=== PATIENT | male | born 1945 | race Caucasian/White ===

== ENCOUNTER 2016-11-10 13:08 | Emergency (ER) | payer MEDICARE, OTHER ==
[2016-11-10] MEDS ORDERED: Diphtheria,Pertussis(Acell),Tetanus Vaccine 0.5 ML Syringe IM ONE (13:22)
[2016-11-10] MEDS ORDERED: Lidocaine 2% Jelly 10 ML Urojet MUCMEM ONE (14:31)
[2016-11-10] MEDS ORDERED: HYDROmorphone 1 MG/ML Syringe IVPUSH ONE ×2 (14:36→15:40)
[2016-11-10] MEDS ORDERED: Lidocaine 2% Jelly 5 ML Tube TOP ONE (14:37)
[2016-11-10 15:34] VITALS: BP 118/78
[2016-11-10] MEDS ORDERED: Ondansetron 4 MG/2 ML SDV IVPUSH ONE (15:49)
--- NOTE | 2016-11-10 16:55 | ER ---
Date of Service: 11/10/2016 SUBJECTIVE: Uri presents to the emergency room with a chief complaint of right xwi-sq-cfiziget femur pain. The patient was standing in the bucket of a friend in tank car loader trimming trees when his friend inadvertently tipped the pocket downward. The patient fell approximately 8 feet onto the ground landing on his right leg. The patient also sustained some abrasions to his left forearm and also sustained a superficial laceration to the top of his head. He did not have loss of consciousness and has recollection of the entire event. He denies any chest pain or shortness of breath. He states that his tetanus is not up-to-date and that he does not have a primary care provider or have any preventive medical care. PAST MEDICAL HISTORY: Denies. MEDICATIONS: None. ALLERGIES: NKDA. REVIEW OF SYSTEMS: General: Denies any fever, chills, or recent illness. HEENT: Please see history of present illness. Denies any mid face trauma. Spine: No midline C-spine, thoracic, or lumbar discomfort. Neck: Denies any anterior neck trauma. Chest: Denies any chest trauma. Abdomen: Denies any abdominal pain. Pelvis: Denies any pelvic pain. Musculoskeletal: Please see history of present illness. Other than what was previously mentioned is otherwise negative for acute complaints. Neurovascular: Denies any numbness or tingling in his extremities. Neurologic: No fainting, blackouts, or lightheadedness prior to or after the event. PHYSICAL EXAMINATION: General: This is a 71-year-old male patient who is in no acute distress. Vital Signs: Blood pressure is 112/63, pulse rate is 83, temperature is 35.2, O2 saturation is 94% on room air, respiratory rate is 18. Skin: Warm, pink, and dry. HEENT: Head is normocephalic. He does have an approximately 2 cm superficial laceration to the apex of his head. No obvious gross bony deformity underlying the laceration. Eyes, PERRLA. Extraocular movements are intact. Mouth, oral mucosa is moist. No oral trauma noted. No malocclusion noted. No mid face trauma noted. Neck: No anterior neck trauma. Spine: No midline C-spine, thoracic, or lumbar discomfort on palpation. Chest: No chest wall trauma noted. Abdomen: Does have a superficial abrasion to the right side of his abdomen. No bruising noted. Bowel sounds are normoactive. No discomfort on palpation. Pelvis is stable. Musculoskeletal: Does have discomfort on palpation of his proximal and mid right femur. There is some mild crepitus noted. He does have Hare traction that was placed pre-hospitally. He also does have some superficial abrasions to the medial aspect of his left forearm. No obvious gross bony deformity noted. Neurovascular: Circulation, sensation, and motor function all within normal limits to the distal portion of his extremities. Neurologic: He is alert and oriented. Answers all questions appropriately. His speech is fluent. No focal neuro symptoms noted. Cranial nerves 2 through 12 are intact. RADIOGRAPHIC DATA: Radiographs of the patient's right femur were obtained. There is evidence of a proximal right femur fracture. Radiographs of the patient's left forearm did not reveal any acute pathology. CT scan of the patient's brain and C-spine were also negative. LABORATORY DATA: CBC: WBCs are 14.5, hemoglobin is 14.8, platelets are 135. Coags: PT is 11.7, INR is 1.0. Chemistry: Sodium is 144, potassium is 3.5, chloride is 107, bicarb is 25, BUN is 16, creatinine is 1.3. Creatinine clearance is 45.67. GFR is 54, glucose is 164, calcium is 8.7, corrected calcium is 8.78, total bilirubin is 1.3. AST is 32, ALT is 32, alkaline phosphatase is 100. Total protein is 6.8. Albumin is 3.9. EMERGENCY ROOM COURSE: IV access was established pre-hospitally in the patient's right forearm. The patient did receive 1 mg of Dilaudid IV. Hare traction splint was placed. Apparently, there was some angulation of the femur. After placement of the Hare traction splint, we were able to reduce the angulation. The patient did report significant improvement in his discomfort after placement of the splint as well. The patient received a total of another 1.5 mg of Dilaudid and 4 mg of Zofran for some nausea. The laceration on the patient's scalp was cleansed with wound commercial cleaner and chlorhexidine, and was closed with Dermabond. The patient's tetanus was updated. Perez catheter was also placed. ASSESSMENT: Right proximal femur fracture, post fall. PLAN: I did speak with Dr. Thompson one of the emergency room physicians at [facility] in [place]. He accepts the patient in transfer. The patient will be transported by [facility] ground ambulance. The patient's daughter was present during his care and will accompany him in her own vehicle. All questions were answered. MWK: 11/10/2016 16:00:51 MODL: 11/10/2016 16:51:26 /[id number]
== END 2016-11-10 15:55 | disposition short-term general hospital (02) ==
LOC: VM.ED 13:08
DX: S72.001A Fracture of unspecified part of neck of right femur, initial encounter for closed fracture (principal); S01.01XA Laceration without foreign body of scalp, initial encounter; S50.812A Abrasion of left forearm, initial encounter; W17.89XA Other fall from one level to another, initial encounter
CPT/HCPCS: 12001; 27232; 36415; 51702; 70450; 71010; 72125; 73090; 73552; 80053; 85025; 85610; 90471; 90715; 96374; 96375; 96376; 99284; 99285; J1170; J2405

== ENCOUNTER 2016-11-14 10:31 | Inpatient (IN) | payer MEDICARE, OTHER ==
[2016-11-14] MEDS ORDERED: oxyCODONE 5 MG Tab PO PRN (11:32)
--- NOTE | 2016-11-14 11:49 | PCM.HP ---
H&P History of Present Illness - General Date of Service: 11/14/16 Admit Problem/Dx: Admission Diagnosis/Problem Admission Diagnosis/Problem Fracture of femur Source of Information: Patient History Limitations: Reports: No limitations - History of Present Illness Initial Comments - Free Text/Narative: Mr. Crain is a 71 yo male with PMH of GERD and self-diagnosed IBS who is admitted for swing bed cares related to a recent femur fracture. He was in the bucket of a tractor doing some tree work when he fell and sustained a fracture to his right femur on 11/10. He was seen in the ED at [facility] initially and then transferred to [facility] in [place] for further cares. He underwent ORIF right subtrochanteric femur fracture with long TFN and cables x 2 on 11/11 and has been recovering well from that standpoint. His hospitalization was complicated by new onset (as far as anyone is aware) atrial fibrillation and expected postoperative anemia. His hemoglobin has stabilized nicely. Mr. Crain feels that his recovery is going quite well. He has been able to ambulate without too much difficulty. He would like to get off of the narcotic medications as soon as possible but notes that he likely tried too soon to get off of them because the subsequent day was quite rough in terms of pain. He otherwise denies concerns today. - Related Data Allergies/Adverse Reactions: Allergies Allergy/AdvReac Type Severity Reaction Status Date / Time No Known Allergies Allergy Verified 11/14/16 10:38 Home Medications: Home Meds Calcium Carbonate [Calcium] 500 mg PO WITHBREAKFAST 11/14/16 [History] Cholecalciferol (Vitamin D3) [Vitamin D3] 1,000 units PO DAILY 11/14/16 [History ] Enoxaparin [Lovenox] 40 mg SUBCUT BEDTIME 11/14/16 [History] Metoprolol Tartrate 12.5 mg PO BID 11/14/16 [History] Omeprazole 10 mg PO DAILY PRN 11/14/16 [History] Sennosides/Docusate Sodium [Senna-Docusate Sodium] 1 tab PO DAILY PRN 11/14/16 [ History] oxyCODONE 10 mg PO Q4H PRN 11/14/16 [History] Past Medical History - Past Health History Medical/Surgical History: Denies Medical/Surgical History Cardiovascular History: Reports: Afib Gastrointestinal History: Reports: Chronic diarrhea, GERD Musculoskeletal History: Reports: Other (see below) Other Musculoskeletal History: right femur fracture - Past Surgical History GI Surgical History: Reports: Appendectomy Musculoskeletal Surgical History: Reports: ORIF, Other (see below) (knee surgery , fracture surgery as a child) Social & Family History - Family History Cardiac: Reports: Hypertension Neurological: Reports: CVA - Tobacco Use Smoking Status *Q: Former Smoker Used Tobacco, but Quit: No - Caffeine Use Caffeine Use: Reports: Coffee - Alcohol Use Alcohol Use History: Yes Alcohol Use in Last Twelve Months: Yes Alcohol Use Frequency: Rarely - Recreational Drug Use Recreational Drug Use: No - Living Situation & Occupation Living situation: Reports: , with significant other 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[place]) H&P Review of Systems - Review of Systems: Review Of Systems: See Below General: Reports: no symptoms HEENT: Reports: no symptoms Pulmonary: Reports: No Symptoms Cardiovascular: Reports: no symptoms Gastrointestinal: Reports: No symptoms Genitourinary: Reports: no symptoms Musculoskeletal: Reports: leg pain (at fracture site - not too bad right now) Skin: Reports: no symptoms Neurological: Reports: No Symptoms Hematologic/Lymphatic: Reports: anemia Exam - Exam Exam: See Below - Vital Signs Vital Signs: Last Vital Signs Temp 36.9 C 11/14/16 11:19 Pulse 90 11/14/16 11:19 Resp 16 11/14/16 10:45 BP 119/55 L 11/14/16 10:45 Pulse Ox 99 11/14/16 10:45 Weight: 89.993 kg - Exam General: alert, oriented, cooperative. No: mild distress, moderate distress, severe distress HEENT: Conjunctiva clear, Mucosa moist & pink, Posterior pharynx clear, Pupils equal, Pupils reactive Neck: supple, trachea midline. No: lymphadenopathy, thyromegaly Lungs: Clear to auscultation, Normal respiratory effort Cardiovascular: regular rate, normal S1, normal S2, irregular rhythm. No: systolic murmur, diastolic murmur Abdomen: Normal Bowel Sounds, Soft. No: Distention, Guarding, Tenderness Extremities: normal inspection, normal pulses. No: edema Skin: warm, dry, intact *Q Meaningful Use (ADM) - VTE *Q VTE Criteria *Q: - Stroke *Q Stroke Criteria *Q: - AMI *Q AMI Criteria *Q: - Problem List (1) Right femoral fracture SNOMED Code(s): 86043663 ICD Code: S72.91XA - UNSP FRACTURE OF RIGHT FEMUR, INIT FOR CLOS FX Status : Acute Current Visit: No Problem Details: - s/p ORIF. - Appears to be healing well. - Patient is allowed to WBAT. - PT/OT consults. - He will follow-up with ortho as scheduled. - Start acetaminophen 1,000 mg TID scheduled in hopes of minimizing narcotic requirements. Cannot have NSAIDs in the setting of possible impaired fracture healing and use of lovenox for VTE prophylaxis. - Continue oxycodone 10 mg PRN but will space to q6 instead of q4. Will wean as able. Bowel regimen in place. Qualifiers: Encounter type: subsequent encounter Femur location: shaft Fracture type : closed Fracture morphology: spiral Fracture alignment: displaced Fracture healing: with routine healing Qualified Code(s): S72.341D - Displaced spiral fracture of shaft of right femur, subsequent encounter for closed fracture with routine healing (2) S/P ORIF (open reduction internal fixation) fracture SNOMED Code(s): 825770788 ICD Code: Z96.7 - PRESENCE OF OTHER BONE AND TENDON IMPLANTS; Z87.81 - PERSONAL HISTORY OF (HEALED) TRAUMATIC FRACTURE Status: Acute Current Visit : Yes (3) Postoperative anemia SNOMED Code(s): 248050496 ICD Code: D64.9 - ANEMIA, UNSPECIFIED Status: Acute Current Visit: Yes Problem Details: - Hgb maribel at 9.8 on 11/13. Stable today. - Will plan to recheck in 3 months to ensure return to normal, sooner PRN. (4) Atrial fibrillation SNOMED Code(s): 85068133 ICD Code: I48.91 - UNSPECIFIED ATRIAL FIBRILLATION Status: Acute Current Visit: Yes Problem Details: - New onset as far as able to tell. - CHADS2-VASC score is 1, placing him in an intermediate range. - He will be on lovenox for another month and we can discuss options for subsequent anticoagulation at that time. - Rates controlled. - Continue metoprolol. Qualifiers: Atrial fibrillation type: unspecified Qualified Code(s): I48.91 - Unspecified atrial fibrillation (5) GERD (gastroesophageal reflux disease) SNOMED Code(s): 305051700 ICD Code: K21.9 - GASTRO-ESOPHAGEAL REFLUX DISEASE WITHOUT ESOPHAGITIS Status: Chronic Current Visit: Yes Problem Details: - Continue omeprazole PRN. Qualifiers: Esophagitis presence: esophagitis presence not specified Qualified Code(s) : K21.9 - Gastro-esophageal reflux disease without esophagitis (6) Chronic diarrhea SNOMED Code(s): 511928368 ICD Code: K52.9 - NONINFECTIVE GASTROENTERITIS AND COLITIS, UNSPECIFIED Status: Chronic Current Visit: Yes Problem Details: - Patient should have a work-up done for this outpatient. He has never had colon cancer screening and really should have a colonoscopy once recovered from this. Problem List Initiated/Reviewed/Updated: Yes Orders Last 24hrs: Active Orders 24 hr Category Date Time Status Admission Status [Patient Status] [ADT] Routine ADT 11/14/16 10:31 Active Notify Provider Vital Signs [RC] ASDIRECTED Care 11/14/16 11:19 Ordered Oxygen Therapy [RC] PRN Care 11/14/16 11:19 Ordered Up With Assistance [RC] ASDIRECTED Care 11/14/16 11:19 Ordered VTE/DVT Education [RC] PER UNIT ROUTINE Care 11/14/16 11:19 Ordered Vital Signs [RC] PER UNIT ROUTINE Care 11/14/16 11:19 Ordered OT Evaluation and Treatment [CONS] Routine Cons 11/14/16 11:19 Ordered PT Evaluation and Treatment [CONS] Routine Cons 11/14/16 11:19 Ordered Regular Diet [DIET] Diet 11/14/16 Lunch Ordered Acetaminophen [Tylenol Extra Strength] Med 11/14/16 12:00 Ordered 1,000 mg PO TID Docusate Sodium/Sennosides [Senna Plus] Med 11/14/16 11:21 Ordered 1 tab PO DAILY PRN Enoxaparin [Lovenox] Med 11/15/16 08:00 Ordered 40 mg SUBCUT DAILY Metoprolol Tartrate [Lopressor] Med 11/14/16 20:00 Ordered 12.5 mg PO BID Omeprazole Med 11/14/16 11:21 Ordered 20 mg PO DAILY PRN oxyCODONE Med 11/14/16 11:32 Ordered 10 mg PO Q6H PRN Resuscitation Status Routine Resus Stat 11/14/16 11:19 Ordered Medication Orders Acetaminophen (Tylenol Extra Strength) 1,000 mg PO TID GENE Enoxaparin Sodium (Lovenox) 40 mg SUBCUT DAILY GENE Metoprolol Tartrate (Lopressor) 12.5 mg PO BID GENE Omeprazole (Omeprazole) 20 mg PO DAILY PRN PRN Reason: Heartburn Oxycodone HCl (Oxycodone) 10 mg PO Q6H PRN PRN Reason: Pain (severe 7-10) Senna/Docusate Sodium (Senna Plus) 1 tab PO DAILY PRN PRN Reason: Constipation Assessment/Plan Comment:: 71 yo male admitted for swing bed cares following ORIF for right femur shaft spiral fracture. Is recovering well. PT/OT consults. See details under problems above. No changes to medications. Will wean narcotics as able. He is on lovenox for VTE prophylaxis. He is full code. Anticipate 1-2 week stay but d/c timing will be determined by PT.
[2016-11-14] MEDS: Acetaminophen 500 MG Tab PO SCH ×2 (12:53→20:46)
[2016-11-14] MEDS: oxyCODONE 5 MG Tab PO PRN ×2 (15:21→20:45)
[2016-11-14] MEDS: Metoprolol Tartrate 25 MG Tab PO SCH (20:45)
[2016-11-15] MEDS: Acetaminophen 500 MG Tab PO SCH ×3 (08:07→19:56)
[2016-11-15] MEDS: Enoxaparin 40 MG/0.4 ML Syringe SUBCUT SCH (08:07)
[2016-11-15] MEDS: Metoprolol Tartrate 25 MG Tab PO SCH ×2 (08:08→19:56)
[2016-11-15] MEDS: oxyCODONE 5 MG Tab PO PRN ×3 (09:44→21:25)
[2016-11-16] MEDS: oxyCODONE 5 MG Tab PO PRN ×4 (03:09→21:19)
[2016-11-16] MEDS: Metoprolol Tartrate 25 MG Tab PO SCH ×2 (07:59→20:46)
[2016-11-16] MEDS: Acetaminophen 500 MG Tab PO SCH ×3 (07:59→20:45)
[2016-11-16] MEDS: Enoxaparin 40 MG/0.4 ML Syringe SUBCUT SCH (08:00)
--- NOTE | 2016-11-16 13:29 | PCM.SN ---
- Free Text/Narrative Note: Patient seen today for wound assessment as he is due for a dressing change. Wounds are looking excellent. Healing well with no surrounding erythema, edema, or purulent drainage. Question also from nursing staff on whether he can shower or not. Touched base with the ortho PA who states he can shower as long as he has an occlusive dressing in place. No change to his current care plan. Touched base also with PT. Therapy is progressing well. They anticipate d/c early-mid next week.
[2016-11-16] MEDS: Omeprazole 20 MG Cap.CR PO PRN (21:22)
[2016-11-17] MEDS: oxyCODONE 5 MG Tab PO PRN ×4 (04:00→23:03)
[2016-11-17] MEDS: Metoprolol Tartrate 25 MG Tab PO SCH ×2 (07:42→20:04)
[2016-11-17] MEDS: Acetaminophen 500 MG Tab PO SCH ×3 (07:43→20:05)
[2016-11-17] MEDS: Enoxaparin 40 MG/0.4 ML Syringe SUBCUT SCH (07:45)
[2016-11-18] MEDS: oxyCODONE 5 MG Tab PO PRN ×4 (05:04→23:10)
[2016-11-18] MEDS: Metoprolol Tartrate 25 MG Tab PO SCH ×2 (07:19→19:39)
[2016-11-18] MEDS: Acetaminophen 500 MG Tab PO SCH ×3 (07:19→19:38)
[2016-11-18] MEDS: Enoxaparin 40 MG/0.4 ML Syringe SUBCUT SCH (07:20)
[2016-11-19] MEDS: oxyCODONE 5 MG Tab PO PRN ×4 (05:09→23:22)
[2016-11-19] MEDS: Metoprolol Tartrate 25 MG Tab PO SCH ×2 (07:47→19:50)
[2016-11-19] MEDS: Acetaminophen 500 MG Tab PO SCH ×3 (07:48→19:51)
[2016-11-19] MEDS: Enoxaparin 40 MG/0.4 ML Syringe SUBCUT SCH (07:49)
[2016-11-19] MEDS: Omeprazole 20 MG Cap.CR PO PRN (19:53)
[2016-11-20] MEDS: oxyCODONE 5 MG Tab PO PRN ×5 (05:24→21:25)
[2016-11-20] MEDS: Metoprolol Tartrate 25 MG Tab PO SCH ×2 (09:03→21:26)
[2016-11-20] MEDS: Acetaminophen 500 MG Tab PO SCH ×3 (09:04→21:24)
[2016-11-20] MEDS: Enoxaparin 40 MG/0.4 ML Syringe SUBCUT SCH (09:07)
[2016-11-21] MEDS: oxyCODONE 5 MG Tab PO PRN ×3 (01:28→09:28)
[2016-11-21 05:29] VITALS: BP 111/53
[2016-11-21] MEDS: Enoxaparin 40 MG/0.4 ML Syringe SUBCUT SCH (07:46)
[2016-11-21] MEDS: Metoprolol Tartrate 25 MG Tab PO SCH (07:46)
[2016-11-21] MEDS: Acetaminophen 500 MG Tab PO SCH (07:46)
--- NOTE | 2016-11-21 08:06 | PCM.DCSUM1 ---
Discharge Summary - Hospital Course Brief History: Mr. Crain is a 71 yo male who was admitted on swing bed status for rehabilitation s/p ORIF of a right femur fracture. His previous hospitalization was complicated by new onset atrial fibrillation and acute blood loss anemia. - Discharge Data Discharge Date: 11/21/16 Discharge Disposition: Home, W Home Health Agency 06 Condition: Good - Discharge Diagnosis/Problem(s) (1) Right femoral fracture SNOMED Code(s): 70384267 ICD Code: S72.91XA - UNSP FRACTURE OF RIGHT FEMUR, INIT FOR CLOS FX Status : Acute Current Visit: No Problem Details: As above, he was admitted for rehab following surgical management of his fracture. Incisions are healing well. He has completed his course of PT and OT here and will continue both as an oupatient via home health. He is on PO pain management. Ortho follow-up is scheduled later this week. He refuses lovenox and will not even do this to bridge; therefore, we have discussed apixaban and he would like to go this route ; it looks like this should be covered by [facility]. Qualifiers: Encounter type: subsequent encounter Femur location: shaft Fracture type : closed Fracture morphology: spiral Fracture alignment: displaced Fracture healing: with routine healing Qualified Code(s): S72.341D - Displaced spiral fracture of shaft of right femur, subsequent encounter for closed fracture with routine healing (2) S/P ORIF (open reduction internal fixation) fracture SNOMED Code(s): 191826922 ICD Code: Z96.7 - PRESENCE OF OTHER BONE AND TENDON IMPLANTS; Z87.81 - PERSONAL HISTORY OF (HEALED) TRAUMATIC FRACTURE Status: Acute Current Visit : Yes (3) Postoperative anemia SNOMED Code(s): 825343786 ICD Code: D64.9 - ANEMIA, UNSPECIFIED Status: Acute Current Visit: Yes Problem Details: Hemoglobin maribel at 9.8 on 11/13. Stable subsequently. Will plan to recheck in 3 months to ensure return to normal, sooner for signs/symptoms of anemia. (4) Atrial fibrillation SNOMED Code(s): 90117869 ICD Code: I48.91 - UNSPECIFIED ATRIAL FIBRILLATION Status: Acute Current Visit: Yes Problem Details: Newly diagnosed but onset unclear as patient has not seen a physician for quite some time. CHADS2-VASC score is 1, placing him in an intermediate range. He will be on eliquis for a month as above. I will see him back in clinic around that time to discuss ongoing anticoagulation options. Rates controlled on metoprolol. Qualifiers: Atrial fibrillation type: unspecified Qualified Code(s): I48.91 - Unspecified atrial fibrillation (5) GERD (gastroesophageal reflux disease) SNOMED Code(s): 502462469 ICD Code: K21.9 - GASTRO-ESOPHAGEAL REFLUX DISEASE WITHOUT ESOPHAGITIS Status: Chronic Current Visit: Yes Problem Details: Omeprazole PRN continued. Qualifiers: Esophagitis presence: esophagitis presence not specified Qualified Code(s) : K21.9 - Gastro-esophageal reflux disease without esophagitis (6) Chronic diarrhea SNOMED Code(s): 231089304 ICD Code: K52.9 - NONINFECTIVE GASTROENTERITIS AND COLITIS, UNSPECIFIED Status: Chronic Current Visit: Yes Problem Details: Patient should have a work-up done for this outpatient. He has never had colon cancer screening and really should have a colonoscopy once recovered from this. - Patient Summary/Data Operative Procedure(s) Performed: none Complications: none Consults: Consultations 11/14/16 11:19 OT Evaluation and Treatment [CONS] Routine PT Evaluation and Treatment [CONS] Routine Labs Pending at D/C: none Recommended Follow-up Testing/Procedures: CBC in 3 months Planned Operative Procedure(s) after DC: none Hospital Course: See above under problems. Hospital course was uncomplicated. He completed his swing bed therapies and will continue as an outpatient. For Home Health: I have seen the patient for the reasons related to his home health needs on 11/21. He needs home health for PT/OT for ongoing rehabilitation s/p ORIF for his right femur fracture. He is homebound as he will need the assistance of another person as well as a walker to leave the home. I will be following his home health plan of care. - Patient Instructions Diet: Usual Diet as Tolerated Activity: As Tolerated Driving: Do Not Drive Showering/Bathing: May Shower, No Tub Bathing/Swimming Wound/Incision Care: Keep Operative Site/Wound Site Clean and Dry, Change Dressing Daily Notify Provider of: Fever, Increased Pain, Swelling and Redness, Drainage, Nausea and/or Vomiting - Discharge Plan Prescriptions/Med Rec: Apixaban [Eliquis] 2.5 mg PO BID #40 tablet Metoprolol Tartrate 12.5 mg PO BID #45 tablet Omeprazole 20 mg PO DAILY PRN #30 cap.cr PRN Reason: Heartburn oxyCODONE 5 mg PO Q4H PRN #20 tablet PRN Reason: pain >7 Home Medications: Home Meds Calcium Carbonate [Calcium] 500 mg PO WITHBREAKFAST 11/14/16 [History] Cholecalciferol (Vitamin D3) [Vitamin D3] 1,000 units PO DAILY 11/14/16 [History ] Sennosides/Docusate Sodium [Senna-Docusate Sodium] 1 tab PO DAILY PRN 11/14/16 [ History] Acetaminophen [Tylenol Extra Strength] 1,000 mg PO TID tablet 11/21/16 [Rx] Apixaban [Eliquis] 2.5 mg PO BID #40 tablet 11/21/16 [Rx] Metoprolol Tartrate 12.5 mg PO BID #45 tablet 11/21/16 [Rx] Omeprazole 20 mg PO DAILY PRN #30 cap.cr 11/21/16 [Rx] oxyCODONE 5 mg PO Q4H PRN #20 tablet 11/21/16 [Rx] - Discharge Summary/Plan Comment DC Time >30 min.: No - General Info Date of Service: 11/21/16 Subjective Update: Doing well this morning. Offers no complaints. Is prepared for dismissal home. - Review of Systems General: Reports: No Symptoms HEENT: Reports: no symptoms Pulmonary: Reports: no symptoms Cardiovascular: Reports: No Symptoms Gastrointestinal: Reports: No symptoms Genitourinary: Reports: no symptoms Musculoskeletal: Reports: no symptoms Skin: Reports: no symptoms Neurological: Reports: No Symptoms - Patient Data Vitals - Most Recent: Last Vital Signs Temp 36.4 C 11/21/16 05:28 Pulse 77 11/21/16 05:28 Resp 16 11/21/16 05:28 BP 111/53 L 11/21/16 05:28 Pulse Ox 99 11/21/16 05:28 Weight - Most Recent: 89.993 kg Med Orders - Current: Current Medications Acetaminophen (Tylenol Extra Strength) 1,000 mg PO TID [facility] Last Admin: 11/21/16 07:46 Dose: 1,000 mg Enoxaparin Sodium (Lovenox) 40 mg SUBCUT DAILY [facility] Last Admin: 11/21/16 07:46 Dose: 40 mg Metoprolol Tartrate (Lopressor) 12.5 mg PO BID GENE Last Admin: 11/21/16 07:46 Dose: 12.5 mg Omeprazole (Omeprazole) 20 mg PO DAILY PRN PRN Reason: Heartburn Last Admin: 11/19/16 19:53 Dose: 20 mg Oxycodone HCl (Oxycodone) 5 mg PO Q4H PRN PRN Reason: Pain 7 or higher (scale 0-10) Last Admin: 11/21/16 05:30 Dose: 5 mg Senna/Docusate Sodium (Senna Plus) 1 tab PO DAILY PRN PRN Reason: Constipation Last Admin: 11/20/16 21:28 Dose: 1 tab Discontinued Medications Oxycodone HCl (Oxycodone) 10 mg PO Q6H PRN PRN Reason: Pain (severe 7-10) Oxycodone HCl (Oxycodone) 10 mg PO Q6H PRN PRN Reason: Pain (severe 7-10) Last Admin: 11/20/16 05:24 Dose: 10 mg - Exam General: Reports: alert, cooperative, no acute distress HEENT: Reports: Pupils equal, Pupils reactive, Mucous membr. moist/pink Neck: Reports: supple, no thyromegaly Lungs: Reports: Clear to auscultation, Normal respiratory effort Cardiovascular: Reports: Regular Rate, Regular Rhythm, No Murmurs Abdomen: Reports: bowel sounds present, soft, no tenderness, no distension Extremities: Reports: no edema, normal pulses Skin: Reports: warm, dry, intact Wound/Incisions: Reports: dressing dry and intact *Q Meaningful Use (DIS) - VTE *Q VTE Criteria *Q: - Stroke *Q Stroke Criteria *Q: - AMI *Q AMI Criteria *Q:
== END 2016-11-21 11:10 | disposition home health service (06) | DRG 561 ==
LOC: VM.MS 10:31
PROVIDERS: ADMIT Family Medicine; ATTEND Family Medicine
DX: S72.341D Displaced spiral fracture of shaft of right femur, subsequent encounter for closed fracture with routine healing (principal); Z96.7 Presence of other bone and tendon implants; W17.89XD Other fall from one level to another, subsequent encounter; D64.9 Anemia, unspecified; I48.91 Unspecified atrial fibrillation; K21.9 Gastro-esophageal reflux disease without esophagitis; K52.9 Noninfective gastroenteritis and colitis, unspecified; Z79.01 Long term (current) use of anticoagulants; Z79.899 Other long term (current) drug therapy; Z87.891 Personal history of nicotine dependence
CPT/HCPCS: 97110-GP; 97116-GP; 97161-GP; 97165-GO; 97530-GP; 97535-GO; A9270-GY; J1650